=== PATIENT | male | born 1980 | race Caucasian/White ===

== ENCOUNTER 2016-10-30 17:38 | Emergency (ER) | payer OTHER ==
[~2016-10-30] VITALS: Ht 170.2 cm; Wt 79.4 kg
[2016-10-30 21:00] VITALS: BP 112/69
== END 2016-10-30 18:57 | disposition short-term general hospital (02) ==
LOC: ED 17:38
DX: S52.251 Displaced comminuted fracture of shaft of ulna, right arm (principal); S52.351A Displaced comminuted fracture of shaft of radius, right arm, initial encounter for closed fracture; X58.XXXA Exposure to other specified factors, initial encounter; Y93.69 Activity, other involving other sports and athletics played as a team or group; Y92.89 Other specified places as the place of occurrence of the external cause; Y99.8 Other external cause status
CPT/HCPCS: J0690; J1170; J1580; J2405; J3010; J7030